=== PATIENT | female | born 1980 | race Caucasian/White ===

== ENCOUNTER 2017-03-28 19:15 | Emergency (ER) | payer OTHER ==
[~2017-03-28] VITALS: Ht 154.9 cm; Wt 77.2 kg
[~2017-03-28 19:15] MED LIST: CLARITIN10 MG; EFFEXOR XR150 MG/TAB PO; MULTI VITAMIN1 EAC1 PO; NORCO 5/325 TAB1 TAB PO; PRENATAL1 TAB; PRILOSEC10 MG; VITAMIN D 22000 UNIT PO
== END 2017-03-28 20:30 ==
LOC: EDMED 19:15
DX: R23.3 Spontaneous ecchymoses (principal)